=== PATIENT | female | born 1945 | race Caucasian/White ===

== ENCOUNTER → 2016-10-18 | Outpatient (CLI) | payer OTHER ==
[2013-09-02 21:01] VITALS: BP 146/65
--- NOTE | 2016-10-18 13:57 | MG ---
Examination: Bilateral screening mammogram. Clinical history: Routine screening. Technique: Digital CC and MLO views of both breasts were obtained. Computer aided detection analysis was performed and used during the interpretation. Comparison: 09/17/2015. Findings: The breasts are heterogeneously dense, reducing the sensitivity of mammography. Benign-appearing cassie cifications and vascular calcifications are noted in the breasts bilaterally. No suspicious mass, area of architectural distortion or suspicious cluster of microcalcifications is noted. Impression: 1. No mammographic evidence of malignancy. BI-RADS category 2-benign findings. Recommend routine annual screening mammogram. Diagnostic CAD was utilized and reviewed. * 0 (ZERO) - ASSESSMENT INCOMPLETE; ADDITIONAL IMAGING IS NEEDED. * 0C - ASSESSMENT INCOMPLETE, NEEDS ADDITIONAL IMAGING EVALUATION AND/OR PRIOR MAMMOGRAMS FOR COMPAR KAREN. * 1/1 (ONE) - NEGATIVE. * 2/II (TWO) - BENIGN FINDINGS. * 3/III (THREE) - PROBABLY BENIGN FINDING; SHORT INTERVAL FOLLOW-UP SUGGESTED. * 4/IV (FOUR) - SUSPICIOUS ABNORMALITY; BIOPSY SHOULD BE CONSIDERED. * 5/V - HIGHLY SUSPICIOUS OF MALIGNANCY; BIOPSY SHOULD BE PERFORMED. * 6/IV - KNOWN BIOPSY PROVEN MALIGNANCY-APPROPRIATE ACTION SHOULD BE TAKEN. A NEGATIVE X-RAY REPORT SHOULD NOT DELAY BIOPSY IF A DOMINANT OR CLINICALLY SUSPICIOUS MASS IS PRESENT; 4 TO 8 PERCENT OF CANCERS ARE NOT IDENTIFIED BY X-RAY. A NEGATIVE REPORT MAY REINFORCE THE CLINICAL IMPRESSION. ADENOSIS AND DENSE BREASTS MAY OBSCURE AN UNDERLYING NEOPLASM. Reported By:
== END ==
LOC: RAD 11:13
PROVIDERS: ATTEND Nurse Practitioner Family
DX: Z12.31 Encounter for screening mammogram for malignant neoplasm of breast (principal)
CPT/HCPCS: 77067

== ENCOUNTER 2019-08-13 12:14 | Observation (INO) ==
[2019-08-13] MEDS ORDERED: TYLENOL 325 MG TAB PO ONE ×2 (12:29→14:06)
[2019-08-13] MEDS ORDERED: BENADRYL INJ 50 MG VIAL IVP ONE (12:30)
[2019-08-13] MEDS ORDERED: ZOFRAN INJ 4 MG VIAL IVP PRN (12:35)
[2019-08-13] MEDS ORDERED: VISTARIL PO PRN (12:37)
[2019-08-13 13:16] LABS: BASOPHILS # (AUTO) 0.1 X10^3/uL (0.0-0.1); BASOPHILS % (AUTO) 1.4 % (0.2-1.0); EOSINOPHILS # (AUTO) 0.2 x10^3/uL (0.0-0.2); EOSINOPHILS % (AUTO) 3.1 % (0.9-2.9); HEMATOCRIT 21.1 % (36.0-47.0); LYMPHOCYTES # (AUTO) 0.9 X10^3/uL (1.3-2.9); LYMPHOCYTES % (AUTO) 12.2 % (21.0-51.0); MEAN CORPUSCULAR HEMOGLOBIN 23.5 pg (27.0-34.0); MEAN CORPUSCULAR HGB CONC 31.3 g/dL (33.0-35.0); MEAN PLATELET VOLUME 8.3 fL (7.4-11.0); MONOCYTES # (AUTO) 0.8 x10^3/uL (0.3-0.8); MONOCYTES % (AUTO) 10.9 % (0.0-13.0); NEUTROPHILS # (AUTO) 5.4 x10^3/uL (2.2-4.8); NEUTROPHILS % (AUTO) 72.4 % (42.0-75.0); PLATELET COUNT 266 X10^3/uL (150.0-450.0); RED BLOOD COUNT 2.81 X10^6/uL (3.5-5.4); WHITE BLOOD COUNT 7.5 X10^3/uL (3.6-10.0)
[2019-08-13] MEDS ORDERED: NS 1000 ML 1,000 ML ONE (13:32)
[2019-08-13] MEDS: NS 1000 ML 1,000 ML IV SCH (14:15)
[2019-08-13] MEDS: NS 500 ML IV 500 ML IV ONE ×2 (14:25→17:36)
--- NOTE | 2019-08-13 17:10 | RAD ---
HISTORYSOBSTUDYPA and lateral chestCOMPARISONNoneFINDINGSSubsegmental atelectasis in the left lower lobe. The right lung is clear. The heart size is normal and the descending aorta is mildly tortuous. There is no effusion. No significant bony abnormality is demonstrated.IMPRESSIONSubsegmental atelectasis at the left lung base.Electronically signed by: PEPE SALES (Aug 13, 2019 13:48:22)
[2019-08-13 17:31] LABS: HEMOGLOBIN 6.6 g/dL (12.0-16.0)
[2019-08-13 17:33] LABS: ANISOCYTOSIS SLIGHT; HYPOCHROMASIA 1+; MICROCYTOSIS SLIGHT; PLATELET MORPHOLOGY COMMENT NORMAL (NORMAL)
--- NOTE | 2019-08-13 17:37 | DR.H&P ---
H&P - History & Physical for Day of: H&P Date: 08/13/19 - Chief Complaint Chief Complaint: "Im just tired all of the time" "give out easy" - History of Present Illness History of Present Illness: PT IS 74 WF DIRECT ADMIT FROM DR GODOY OFFICE WITH SYMPTOMATIC ANEMIA. PRESENTED TO OUR OFFICE ON 08/09 WITH CO FATIGUE, GIVING OUT EASILY. PT HAD EKG REVEALING AFIB WITH CONTROLLED RATE. PT ON METOPROLOL AND ELIQUIS FOR AFIB. PT'S HGB 6.7 WITHOUT ANY REPORTS OF N/V/D OR BLOOD IN STOOL. PT REPORTS SHE HAD NEVER HAD EGD OR COLONOSCOPY IN THE PAST. PT WAS PREVIOUSLY SEEN BY [facility] WITH STRESS TEST AND ECHO > 5 YEARS AGO. PT WAS SEEN BY [facility] THIS AM FOR EVALUATION AND TREATMENT OF AFIB AND EARL. PT ADMITTED FOR TREATMENT OF ACUTE ANEMIA. - Past Medical History Past Medical History: Anemia, Arthritis Additional Medical History: AFIB - Past Surgical History Surgical History: HORSE BREAKER Surgery, Ortho Surgery - Social History Does patient currently use any type of tobacco product: No Have you used tobacco products in the last 12 months: No Type of Tobacco Use: None Does any household member use tobacco: No Alcohol Use: None Drug Use: None Risks, benefits, and alternatives of opioids discussed: No - Medications Home Medications: MS Morphine [Morphine] Allergy (Mild, Verified 08/29/13 10:02) NAUSEA - Review of Systems Constitutional: Weakness Eyes: No Symptoms Reported ENT: No Symptoms Reported Respiratory: SOB with Excertion Cardiovascular: Palpitations Genitourinary: No Symptoms Reported Musculoskeletal: No Symptoms Reported Skin: No Symptoms Reported Neurological: No Symptoms Reported - Physical Exam Vital Signs: Respiratory Rate 20 Blood Pressure [Left Arm] 146/65 Blood Pressure [Right Arm] 116/57 Blood Pressure 146/65 Oriented: Normal Eyes: Normal Ear: Normal Nose: Normal Respiratory: RLL Diminished, LLL Diminished Cardiovascular: Irregular (REGULARLY IRREGULAR) Auscultation: Bowel Sounds: Normal Palpation: Normal Tenderness: Normal Skin: Normal Musculoskeletal: Normal Psychiatric: Normal Mood Description: Calm Speech Pattern: Clear, Appropriate - Assessment/Plan (1) Anemia Status: Acute Plan: ADMIT, ANEMIA PANEL. OCCULT STOOL. TRANSFUSE 2 UNITS PRBC, ADMISSION LABS. EKG, CXR ON ADMISSION. BP MONITORING (2) History of atrial fibrillation Status: Chronic Plan: CONTINUE METOPROLOL, TELEMETRY. ELIQUIS ON HOLD DUE TO ANEMIA, OCCULT STOOL PENDING. (3) Arthritis Status: Acute (4) EARL (dyspnea on exertion) Status: Acute - Allergies Allergies/Adverse Reactions: Allergies Allergy/AdvReac Type Severity Reaction Status Date / Time MS Morphine [Morphine] Allergy Mild NAUSEA Verified 08/29/13 10:02
[2019-08-13 17:38] LABS: ALANINE AMINOTRANSFERASE 18 Units/L (12-78); ALBUMIN 3.3 g/dL (3.4-5.0); ALKALINE PHOSPHATASE 99 Units/L (46-116); ASPARTATE AMINO TRANSFERASE 11 Units/L (15-37); BLOOD UREA NITROGEN 22 mg/dL (7-18); CALCIUM 8.6 mg/dL (8.5-10.1); CARBON DIOXIDE 28.8 mmol/L (21-32); CHLORIDE 107 mmol/L (98-107); COR CA(FOR HYPOALB) 9.2 mg/dL (8.5-10.1); COR NA(FOR HYPERGLY) 141 mmol/L (136-145); CREATININE 1.12 mg/dL (0.55-1.02); SODIUM 141 mmol/L (136-145); TOTAL PROTEIN 7.4 g/dL (6.4-8.2); eGFR NON BLACK RACES 51 (>60)
[2019-08-13 17:43] LABS: IRON 14 ug/dL (50-175)
[2019-08-13 18:08] VITALS: BMI 32.3
[2019-08-13] MEDS: PROTONIX INJ 40 MG VIAL IVP SCH (18:35)
[2019-08-13] MEDS ORDERED: NS 250 ML IV 250 ML IV ONE (19:49)
[2019-08-13] MEDS: TOPROL XL PO SCH (21:46)
[2019-08-13 23:59] LABS: HEMATOCRIT 25.4 % (36.0-47.0); HEMOGLOBIN 8.2 g/dL (12.0-16.0)
[2019-08-14] MEDS ORDERED: ROBITUSSIN DM PO PRN (04:14)
[2019-08-14] MEDS ORDERED: ROBITUSSIN DM ONE (04:17)
[2019-08-14 06:00] LABS: ALANINE AMINOTRANSFERASE 16 Units/L (12-78); ALBUMIN 3.2 g/dL (3.4-5.0); ALKALINE PHOSPHATASE 92 Units/L (46-116); ASPARTATE AMINO TRANSFERASE 18 Units/L (15-37); BLOOD UREA NITROGEN 25 mg/dL (7-18); CALCIUM 8.5 mg/dL (8.5-10.1); CARBON DIOXIDE 25.8 mmol/L (21-32); CHLORIDE 107 mmol/L (98-107); COR CA(FOR HYPOALB) 9.1 mg/dL (8.5-10.1); CREATININE 0.93 mg/dL (0.55-1.02); SODIUM 141 mmol/L (136-145); TOTAL PROTEIN 7.1 g/dL (6.4-8.2); eGFR NON BLACK RACES > 60 (>60)
[2019-08-14] MEDS ORDERED: MICRO K EXTEN CAP 10 MEQ PO PRN (06:13)
[2019-08-14] MEDS ORDERED: POTASSIUM CHL 40 MEQ/NS 0.45% 500 ML IV PRN (06:13)
[2019-08-14] MEDS ORDERED: POTASSIUM CHL 60 MEQ/NS 0.45% 500 ML IV PRN (06:13)
[2019-08-14] MEDS ORDERED: POTASSIUM CHLORIDE LIQ 20 MEQ UDC PO PRN (06:13)
[2019-08-14] MEDS ORDERED: K-DUR TAB 20 MEQ PO PRN (06:13)
[2019-08-14] MEDS ORDERED: KLOR-CON PO PRN (06:13)
[2019-08-14] MEDS ORDERED: MAGNESIUM SULFATE 1 GRAM/100 mL PREMIX 1 GM/100 ML BAG IV PRN (06:13)
[2019-08-14 08:37] LABS: BASOPHILS # (AUTO) 0.1 X10^3/uL (0.0-0.1); BASOPHILS % (AUTO) 1.6 % (0.2-1.0); EOSINOPHILS # (AUTO) 0.4 x10^3/uL (0.0-0.2); EOSINOPHILS % (AUTO) 4.4 % (0.9-2.9); HEMATOCRIT 26.3 % (36.0-47.0); HEMOGLOBIN 8.5 g/dL (12.0-16.0); LYMPHOCYTES # (AUTO) 1.2 X10^3/uL (1.3-2.9); LYMPHOCYTES % (AUTO) 13.7 % (21.0-51.0); MEAN CORPUSCULAR HEMOGLOBIN 25.7 pg (27.0-34.0); MEAN CORPUSCULAR HGB CONC 32.3 g/dL (33.0-35.0); MEAN CORPUSCULAR VOLUME 79.6 fL (80.0-100.0); MEAN PLATELET VOLUME 9.6 fL (7.4-11.0); MONOCYTES # (AUTO) 0.9 x10^3/uL (0.3-0.8); MONOCYTES % (AUTO) 9.6 % (0.0-13.0); NEUTROPHILS # (AUTO) 6.4 x10^3/uL (2.2-4.8); NEUTROPHILS % (AUTO) 70.7 % (42.0-75.0); PLATELET COUNT 230 X10^3/uL (150.0-450.0); RED BLOOD COUNT 3.31 X10^6/uL (3.5-5.4); RED CELL DISTRIBUTION WIDTH 19.4 % (11.6-16.5); WHITE BLOOD COUNT 9.1 X10^3/uL (3.6-10.0)
[2019-08-14 09:07] LABS: ANISOCYTOSIS SLIGHT; HYPOCHROMASIA SLIGHT; PLATELET MORPHOLOGY COMMENT NORMAL (NORMAL)
[2019-08-14] MEDS: TOPROL XL PO SCH (09:32)
[2019-08-14] MEDS: PROTONIX INJ 40 MG VIAL IVP SCH (09:32)
[2019-08-14 09:52] LABS: CKMB % 3.1 % (<4); CREATINE KINASE 32 Units/L (26-192); CREATINE KINASE MB < 1.0 ng/mL (0-4.0); TROPONIN I < 0.02 ng/mL (0-1.5)
[2019-08-14] MEDS ORDERED: NS 100 ML IV 100 ML with VENOFER 400 MG IV NR ×2 (10:00)
[2019-08-14] MEDS: NS 1000 ML 1,000 ML IV SCH (18:26)
[2019-08-15 05:32] LABS: BASOPHILS # (AUTO) 0.1 X10^3/uL (0.0-0.1); BASOPHILS % (AUTO) 1.5 % (0.2-1.0); EOSINOPHILS # (AUTO) 0.5 x10^3/uL (0.0-0.2); EOSINOPHILS % (AUTO) 4.9 % (0.9-2.9); HEMATOCRIT 25.5 % (36.0-47.0); HEMOGLOBIN 8.2 g/dL (12.0-16.0); LYMPHOCYTES # (AUTO) 1.3 X10^3/uL (1.3-2.9); LYMPHOCYTES % (AUTO) 12.9 % (21.0-51.0); MEAN CORPUSCULAR HEMOGLOBIN 25.7 pg (27.0-34.0); MEAN CORPUSCULAR HGB CONC 32.1 g/dL (33.0-35.0); MEAN CORPUSCULAR VOLUME 80.1 fL (80.0-100.0); MEAN PLATELET VOLUME 9.7 fL (7.4-11.0); MONOCYTES # (AUTO) 0.9 x10^3/uL (0.3-0.8); MONOCYTES % (AUTO) 8.9 % (0.0-13.0); NEUTROPHILS % (AUTO) 71.8 % (42.0-75.0); PLATELET COUNT 233 X10^3/uL (150.0-450.0); RED BLOOD COUNT 3.18 X10^6/uL (3.5-5.4); RED CELL DISTRIBUTION WIDTH 19.6 % (11.6-16.5); WHITE BLOOD COUNT 9.7 X10^3/uL (3.6-10.0)
[2019-08-15 05:36] LABS: ALANINE AMINOTRANSFERASE 17 Units/L (12-78); ALBUMIN 3.1 g/dL (3.4-5.0); ALKALINE PHOSPHATASE 92 Units/L (46-116); ASPARTATE AMINO TRANSFERASE 16 Units/L (15-37); BLOOD UREA NITROGEN 18 mg/dL (7-18); CALCIUM 8.7 mg/dL (8.5-10.1); CHLORIDE 108 mmol/L (98-107); COR CA(FOR HYPOALB) 9.4 mg/dL (8.5-10.1); CREATININE 0.81 mg/dL (0.55-1.02); MAGNESIUM 1.9 mg/dL (1.7-2.9); SODIUM 141 mmol/L (136-145); TOTAL PROTEIN 6.9 g/dL (6.4-8.2); eGFR NON BLACK RACES > 60 (>60)
[2019-08-15 05:52] LABS: PLATELET MORPHOLOGY COMMENT NORMAL (NORMAL)
[2019-08-15] MEDS: K-RIDER 10 MEQ/NS 100 ML 10 MEQ/100 ML BAG IV PRN ×2 (06:15→09:58)
[2019-08-15] MEDS: TOPROL XL PO SCH (09:57)
[2019-08-15] MEDS: PROTONIX INJ 40 MG VIAL IVP SCH (09:57)
[2019-08-15] MEDS ORDERED: CARDIZEM CD 120 MG 24-HR PO SCH (10:00)
[2019-08-15] MEDS ORDERED: DIPRIVAN VIAL 20 ML ONE (10:56)
[2019-08-15] MEDS ORDERED: LASIX IVP SCH (11:00)
[2019-08-15] MEDS ORDERED: K-DUR TAB 20 MEQ PO SCH (11:00)
--- NOTE | 2019-08-15 11:04 | RAD ---
HISTORYCOUGH, DIMINISHED LUNG SOUNDSSTUDYPortable AP chestCOMPARISONFebruary 2019FINDINGSThere is increasing left lower lobe retrocardiac medial density. The heart and mediastinum are unremarkable. The right lung is clear. There is no effusion demonstrated.IMPRESSIONLeft lower lobe retrocardiac basilar subsegmental atelectasis or pneumoniaElectronically signed by: PEPE SALES (Aug 15, 2019 11:03:11)
[2019-08-15] MEDS: NS 1000 ML 1,000 ML IV SCH (13:10)
[2019-08-15 13:39] VITALS: BP 126/81
== END 2019-08-15 14:15 | disposition home or self-care (01) ==
LOC: ICU
PROVIDERS: ADMIT Internal Medicine; ATTEND Internal Medicine
DX: R06.00 Dyspnea, unspecified; R94.31 Abnormal electrocardiogram [ECG] [EKG]; R53.1 Weakness; K29.70 Gastritis, unspecified, without bleeding; I48.91 Unspecified atrial fibrillation; K44.9 Diaphragmatic hernia without obstruction or gangrene; D50.8 Other iron deficiency anemias; Z79.01 Long term (current) use of anticoagulants; M13.89 Other specified arthritis, multiple sites
CPT/HCPCS: 36415; 36430; 71010; 71020; 71045; 71046; 80053; 82270; 82550; 82553; 82607; 82728; 82746; 83540; 83735; 84466; 84484; 85014; 85018; 85025; 85610; 86850; 86900; 86901; 86922; 93005; 93306; 94762; 96360; 96361; 96374; 99100; A4222; C9113; G0378; J1756; J1940; J2704; J3475; J3480; J3490; J7030; J7040; J7050; P9016